=== PATIENT | male | born 2000 | race Caucasian/White ===

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

== ENCOUNTER 2019-07-03 22:12 | Emergency (ER) | payer OTHER ==
[~2019-07-03] VITALS: Ht 182.9 cm; Wt 106.5 kg
[2019-07-03 22:16] VITALS: BP 121/80
[2019-07-03] MEDS ORDERED: CYCLOBENZAPRINE 10 MG TABLET PO STA (22:53)
[2019-07-03] MEDS ORDERED: CYCLOBENZAPRINE 10 MG TABLET ONE (22:55)
--- NOTE | 2019-07-03 23:02 | NUR ---
MEDS ADMIN PER JUL.
--- NOTE | 2019-07-03 23:40 | NUR ---
PT BACK FROM US. LAB AT BEDSIDE.
[2019-07-03 23:55] LABS: BASOPHILS # (AUTO) 0.03 x10^3/uL (0-0.1); BASOPHILS % (AUTO) 1 % (0-1); EOSINOPHILS # (AUTO) 0.02 x10^3/uL (0-0.4); EOSINOPHILS % (AUTO) 0 % (1-7); LYMPHOCYTES # (AUTO) 1.95 x10^3/uL (1-3.4); LYMPHOCYTES % (AUTO) 35 % (22-44); MD NO; MEAN CORPUSCULAR HEMOGLOBIN 29.4 pg (27.5-34.5); MEAN CORPUSCULAR HGB CONC 33.6 g/dL (33.2-36.2); MEAN CORPUSCULAR VOLUME 87.6 fL (81-97); MEAN PLATELET VOLUME 8.2 fL (7.4-10.4); MONOCYTES # (AUTO) 0.95 x10^3/uL (0.2-0.8); MONOCYTES % (AUTO) 17 % (2-9); NEUTROPHILS # (AUTO) 2.66 x10^3/uL (1.8-6.8); NEUTROPHILS % (AUTO) 47 % (42-75); PLATELET COUNT 257 x10^3/uL (130-400); RED BLOOD COUNT 4.82 x10^6/uL (4.38-5.82); RED CELL DISTRIBUTION WIDTH 13.2 % (9.4-14.8)
--- NOTE | 2019-07-04 00:01 | NUR ---
REPORT GIVEN TO SENA HIGHTOWER.
[2019-07-04 00:05] LABS: ALANINE AMINOTRANSFERASE 19 U/L (12-78); ALBUMIN 3.9 g/dL (3.4-5.0); ANION GAP 6 mmol/L (5-15); CALCIUM 8.5 mg/dL (8.5-10.1); CHLORIDE 111 mmol/L (98-107)
[2019-07-04 00:07] LABS: ALKALINE PHOSPHATASE 107 U/L (45-117); BILIRUBIN,TOTAL 0.2 mg/dL (0.2-1.0); TOTAL PROTEIN 7.5 g/dL (6.4-8.2)
--- NOTE | 2019-07-04 01:03 | NUR ---
dc by lisy quiroga
== END 2019-07-04 01:04 | disposition home or self-care (01) ==
LOC: ED 22:58
DX: F17.210 Nicotine dependence, cigarettes, uncomplicated (principal); G89.11 Acute pain due to trauma; R07.89 Other chest pain; R10.11 Right upper quadrant pain; S20.211A Contusion of right front wall of thorax, initial encounter; X58.XXXA Exposure to other specified factors, initial encounter; Y93.63 Activity, rugby; Y92.328 Other athletic field as the place of occurrence of the external cause; Y99.8 Other external cause status
CPT/HCPCS: 36415; 76700; 80053; 83690; 85025; 99285